=== PATIENT | male | born 1955 | race Caucasian/White ===

== ENCOUNTER → 2018-09-11 | Outpatient (REF) | LOC: SD 15:07 ==

== ENCOUNTER 2020-05-25 02:50 | Emergency (ER) | payer MEDICAID ==
[~2020-05-25] VITALS: Ht 170.2 cm; Wt 61.2 kg
[2020-05-25 02:57] VITALS: Ht 170.2 cm; Wt 61.2 kg
[2020-05-25 05:14] VITALS: BP 110/70
== END 2020-05-25 05:05 | disposition home or self-care (01) ==
LOC: ED 02:50
DX: M10.072 Idiopathic gout, left ankle and foot (principal); M10.071 Idiopathic gout, right ankle and foot; F17.210 Nicotine dependence, cigarettes, uncomplicated; I11.0 Hypertensive heart disease with heart failure; I50.9 Heart failure, unspecified
CPT/HCPCS: J1885